=== PATIENT | female | born 2000 | race Caucasian/White ===

== ENCOUNTER 2019-05-08 17:21 | Emergency (ER) | payer OTHER ==
[~2019-05-08] VITALS: Ht 172.7 cm; Wt 124.7 kg
== END 2019-05-08 20:14 | disposition home or self-care (01) ==
LOC: ER 17:21
DX: S80.812A Abrasion, left lower leg, initial encounter (principal); L03.116 Cellulitis of left lower limb; W22.8XXA Striking against or struck by other objects, initial encounter; Y93.89 Activity, other specified; Y92.89 Other specified places as the place of occurrence of the external cause; Y99.8 Other external cause status

== ENCOUNTER 2019-05-15 00:29 | Emergency (ER) | payer OTHER ==
[~2019-05-15] VITALS: Ht 172.7 cm; Wt 124.7 kg
[2019-05-15] MEDS ORDERED: DICLOFENAC SODI75 MG PO (02:41)
== END 2019-05-15 03:56 | disposition home or self-care (01) ==
LOC: ER 00:29
DX: S93.402A Sprain of unspecified ligament of left ankle, initial encounter (principal); X50.0XXA Overexertion from strenuous movement or load, initial encounter; Y93.89 Activity, other specified; Y92.89 Other specified places as the place of occurrence of the external cause; Y99.8 Other external cause status

== ENCOUNTER 2021-08-25 16:15 | Emergency (ER) | payer OTHER ==
[~2021-08-25] VITALS: Ht 172.7 cm; Wt 104.3 kg
[~2021-08-25 16:15] MED LIST: DICLOFENAC SODI75 MG PO
[2021-08-25] MEDS ORDERED: TRIDESILON60 GM TOP (20:06)
== END 2021-08-25 20:33 | disposition home or self-care (01) ==
LOC: ER 16:15
DX: R21 Rash and other nonspecific skin eruption (principal)